=== PATIENT | female | born 1960 | race Caucasian/White ===

== ENCOUNTER 2021-02-06 11:43 | Outpatient (CLI) | payer OTHER ==
[2021-02-06] MEDS ORDERED: GADOTERATE MEGLUMINE 7.5 MMOL/15 ML VIAL IV ONE (12:33)
== END 2021-02-06 20:36 | disposition home or self-care (01) ==
LOC: SMI 11:43
DX: S41.112A Laceration without foreign body of left upper arm, initial encounter (principal); M89.9 Disorder of bone, unspecified; X58.XXXA Exposure to other specified factors, initial encounter; Y93.89 Activity, other specified; Y92.89 Other specified places as the place of occurrence of the external cause; Y99.8 Other external cause status
CPT/HCPCS: 73219; A9575